=== PATIENT | male | born 1925 | race Caucasian/White ===

== ENCOUNTER → 2016-06-03 | Outpatient (CLI) | payer OTHER ==
[~2016-06-03] MED LIST: ALPHTAB9 PO; ASPCH81 PO; ATOR-22 PO; CLTP PO; COEN100C7 PO; CYAN250T PO; FSM70 PO; MIRT15TA2 PO; PRED-301 PO; PROP10TA7 PO; [UNRECOGNIZED DRUG - CODE] PO
[2016-06-03 09:08] LABS: BASO % 0.9 %; BASO ABS # 0.05 K/uL (0-0.2); COMPLETE YES; EOS % 3.2 %; HEMATOCRIT 37.9 % (42-52); IG% 0.2 %; LYMPH % 21.7 %; LYMPH ABS # 1.21 K/uL (1.2-3.4); MEAN PLATELET VOLUME 9.9 fL (7.4-10.4); MONO % 11.5 %; NEUT % 62.5 %; PLATELET COUNT 209 K/uL (130-400); RED BLOOD COUNT 4.03 M/uL (4.7-6.1); WHITE BLOOD COUNT 5.58 K/uL (4.8-10.8)
[2016-06-03 09:14] LABS: BLOOD UREA NITROGEN 26 mg/dl (7-18); BUN/CREATININE RATIO 23.9 (10-20); CARBON DIOXIDE 24 mmol/L (21-32); CHLORIDE 107 mmol/L (98-107); GLUCOSE 123 mg/dl (70-99); POTASSIUM 3.6 mmol/L (3.5-5.1); SODIUM 143 mmol/L (136-145)
[2016-06-03 09:17] LABS: ALB/GLOB RATIO 1.3 (0.9-2); ALKALINE PHOSPHATASE 98 U/L (45-117); ALT/SGPT 18 U/L (12-78); AST/SGOT 19 U/L (15-37)
== END | disposition home or self-care (01) ==
LOC: C.LABVPSUW 08:39
PROVIDERS: ATTEND Internal Medicine Critical Care Medicine
DX: R53.1 Weakness (principal); D64.9 Anemia, unspecified